=== PATIENT | male | born 1975 | race Caucasian/White ===

== ENCOUNTER → 2016-09-08 | Outpatient (CLI) | payer OTHER ==
[~2016-09-08] VITALS: Ht 172.7 cm; Wt 65.8 kg
[~2016-09-08] MED LIST: ALPRAZOLAM2 MG PO; AMPHETAMINE SAL10 MG PO; HYDROCODONE-AP1 EAC6 PO; ROSUVASTATIN CA20 MG PO; WELLBUTRIN XL300 MG PO
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
[2016-09-08 09:22] VITALS: BP 102/67
== END | disposition home or self-care (01) ==
LOC: PAIN 07:23
DX: M54.16 Radiculopathy, lumbar region (principal); E11.9 Type 2 diabetes mellitus without complications; F41.9 Anxiety disorder, unspecified; F32.9 Major depressive disorder, single episode, unspecified; E78.5 Hyperlipidemia, unspecified; Z90.49 Acquired absence of other specified parts of digestive tract; Z98.890 Other specified postprocedural states

== ENCOUNTER → 2016-09-22 | Outpatient (CLI) | payer OTHER ==
[~2016-09-22] VITALS: Ht 172.7 cm; Wt 63.8 kg
[~2016-09-22] MED LIST changes: +NEURONTIN 300300 M1 PO; +VOLTAREN GEL 1100 G2 TOP
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
[2016-09-22 12:25] VITALS: BP 127/87
== END ==
LOC: PAIN 07:35
DX: M54.5 Low back pain (principal); E11.9 Type 2 diabetes mellitus without complications; F41.8 Other specified anxiety disorders